=== PATIENT | female | born 1940 | race African-American/Black ===

== ENCOUNTER 2017-06-26 15:02 | Emergency (ER) | payer BC, OTHER ==
[~2017-06-26] VITALS: Ht 167.6 cm; Wt 57.2 kg
[2017-06-26 15:02] VITALS: BP_SYST 183
--- NOTE | 2017-06-26 15:02 | NUR ---
[facility] Side rails up. Report given to Jaylin HIGUERA.
--- NOTE | 2017-06-26 15:37 | NUR ---
ER at bedside examining patient.
[2017-06-26] MEDS ORDERED: NS 500 ML IV SCH (15:39)
[2017-06-26] MEDS ORDERED: IPRATROPIUM/ALBUTEROL SULFATE 3 ML AMPUL.NEB INH ONE ×2 (15:45→18:00)
[2017-06-26 16:37] LABS: BASOPHILS # (AUTO) 0.1 K/uL (0.0-0.2); BASOPHILS % (AUTO) 2.3 % (0.0-2.0); EOSINOPHILS % (AUTO) 0.1 % (0.0-4.0); HEMATOCRIT 39.3 % (36-48); HEMOGLOBIN 12.9 g/dL (12.0-16.0); LYMPHOCYTES # (AUTO) 0.5 K/uL (1.0-5.5); LYMPHOCYTES % (AUTO) 13.5 % (20.5-51.5); MEAN CORPUSCULAR HEMOGLOBIN 30 pg (27-31); MEAN CORPUSCULAR HGB CONC 33 % (32-36); MEAN CORPUSCULAR VOLUME 90 fL (79.0-98.0); MONOCYTES # (AUTO) 0.2 K/uL (0.0-1.0); MONOCYTES % (AUTO) 5.3 % (1.7-9.3); NEUTROPHILS # (AUTO) 2.9 K/uL (1.8-7.7); NEUTROPHILS % (AUTO) 78.8 % (40.0-70.0); PLATELET COUNT (AUTO) 486 K/uL (130-430); RED BLOOD CELL COUNT(AUTO) 4.37 MIL/uL (4.2-6.2); RED CELL DISTRIBUTION WIDTH 11.9 % (9.0-15.0); WHITE BLOOD COUNT (AUTO) 3.7 K/uL (4.8-10.8)
[2017-06-26 16:49] LABS: ANION GAP 12 (5-15); CALCIUM 10.4 mg/dL (8.4-11.0); CHLORIDE 104 mmol/L (98-107); CREATININE 0.68 mg/dL (0.55-1.30); GLUCOSE 156 mg/dL (70-99); POTASSIUM 3.2 mmol/L (3.5-5.1); SODIUM SERUM 140 mmol/L (136-145); UREA NITROGEN, BLOOD 6 mg/dL (8-21)
--- NOTE | 2017-06-26 16:50 | NUR ---
Pt complains of cough, dizzines, n/v with phlegm for the past 3 days. Pt denies fever or diarrhea. Pt was brought in by BLS. No other injuries/complaints per pt or noted. Addendum: 06/26/17 at 1733 by CAITY Pt was assessed at 1600
[2017-06-26 16:54] LABS: ALANINE AMINOTRANSFERASE 27 U/L (12-78); ALBUMIN 4.3 g/dL (3.4-4.8); ASPARTATE AMINOTRANSFERASE 23 U/L (10-37); TOTAL BILIRUBIN 0.7 mg/dL (0.0-1.0)
[2017-06-26 17:07] LABS: PROTHROMBIN TIME 10.4 SECS (9.5-12.5)
[2017-06-26] MEDS ORDERED: NACL 0.9% 500 ML IV ONE (17:15)
--- NOTE | 2017-06-26 17:20 | NUR ---
Pt was given hydration, tolerated it well.
[2017-06-26 17:27] LABS: BILIRUBIN,URINE NEGATIVE (NEGATIVE); BLOOD, URINE NEGATIVE (NEGATIVE); CLARITY/URINE CLEAR (CLEAR); COLOR,URINE YELLOW (YELLOW); GLUCOSE,URINE NEGATIVE (NEGATIVE); KETONES,URINE 2+ (NEGATIVE); LEUKOCYTE ESTERASE ,URINE NEGATIVE (NEGATIVE); NITRITE, URINE NEGATIVE (NEGATIVE); PH,URINE 8.5 (5.0-8.0); PROTEIN URINE NEGATIVE (NEGATIVE); UROBILINOGEN,URINE 0.2 (0.2-1.0)
[2017-06-26] MEDS ORDERED: MECLIZINE HCL 25 MG TABLET (ANITVERT) PO ONE (18:00)
[2017-06-26] MEDS ORDERED: methylPREDNISolone SOD SUCC/PF 62.5 MG/ML VIAL IVP ONE (18:15)
--- NOTE | 2017-06-26 18:17 | NUR ---
Medication was given to pt, tolerated it well.
--- NOTE | 2017-06-26 18:30 | NUR ---
Pt was given medication, tolerated it well.
--- NOTE | 2017-06-26 19:30 | NUR ---
Patient resting quietly in no acute idstress, IVF infusing without difficulty-no redness or swelling noted at site. Will dc when IV fluid is complete.
[2017-06-26 20:00] VITALS: BP_SYST 149
--- NOTE | 2017-06-26 20:00 | NUR ---
Patient given written and verbal discharge instructions and verbalizes understanding. ER MD discussed with patient the results and treatment provided. Patient in stable condition. ID arm band removed. IV catheter removed intact and dressing applied, no active bleeding. Rx of Meclizine, Prednisone given. Patient educated on pain management and to follow up with PMD. Pain Scale 0. Opportunity for questions provided and answered. Patient left ER ambulating with slow, steady gait in no acute distress. No adverse reaction noted to medication. Patient taken to exit via wheelchair by this RN and assisted into car. Patient's family to drive patient home.
== END 2017-06-26 20:00 | disposition home or self-care (01) ==
LOC: SED 15:02
DX: J20.9 Acute bronchitis, unspecified (principal); R42 Dizziness and giddiness; K21.9 Gastro-esophageal reflux disease without esophagitis; Z91.041 Radiographic dye allergy status; J45.909 Unspecified asthma, uncomplicated
CPT/HCPCS: 36415; 71045; 80053; 81003; 83605; 84484; 85025; 85610; 85730; 86710; 87040; 87086; 93005; 94640; 96361; 96374; 99285; J2930; J7030; J7040; J8597

== ENCOUNTER 2018-12-30 16:15 | Emergency (ER) | payer OTHER ==
[~2018-12-30] VITALS: Ht 165.1 cm; Wt 59.9 kg
[2018-12-30 16:51] VITALS: BP_SYST 129
== END 2018-12-30 18:03 | disposition left against medical advice (07) ==
LOC: SED 16:15
DX: M79.674 Pain in right toe(s) (principal); Z53.21 Procedure and treatment not carried out due to patient leaving prior to being seen by health care provider

== ENCOUNTER 2019-01-16 06:33 | Emergency (ER) | payer OTHER ==
[~2019-01-16] VITALS: Ht 165.1 cm; Wt 56.7 kg
[2019-01-16 07:00] VITALS: BP_SYST 133
[2019-01-16 08:24] LABS: BASOPHILS % (AUTO) 0.9 % (0.0-2.0); EOSINOPHILS # (AUTO) 0.1 K/uL (0.0-0.4); EOSINOPHILS % (AUTO) 2.7 % (0.0-4.0); HEMATOCRIT 35.5 % (36-48); HEMOGLOBIN 11.9 g/dL (12.0-16.0); LYMPHOCYTES # (AUTO) 0.9 K/uL (1.0-5.5); LYMPHOCYTES % (AUTO) 24.7 % (20.5-51.5); MEAN CORPUSCULAR HEMOGLOBIN 31 pg (27-31); MEAN CORPUSCULAR HGB CONC 34 % (32-36); MEAN CORPUSCULAR VOLUME 92 fL (79.0-98.0); MONOCYTES # (AUTO) 0.3 K/uL (0.0-1.0); NEUTROPHILS # (AUTO) 2.4 K/uL (1.8-7.7); NEUTROPHILS % (AUTO) 64.7 % (40.0-70.0); PLATELET COUNT (AUTO) 366 K/uL (130-430); RED BLOOD CELL COUNT(AUTO) 3.84 MIL/uL (4.2-6.2); RED CELL DISTRIBUTION WIDTH 13.3 % (9.0-15.0); WHITE BLOOD COUNT (AUTO) 3.7 K/uL (4.8-10.8)
[2019-01-16 08:40] LABS: PROTHROMBIN TIME 9.9 SECS (9.5-12.5)
[2019-01-16 08:49] LABS: ANION GAP 9 (5-15); CALCIUM 9.5 mg/dL (8.4-11.0); CHLORIDE 103 mmol/L (98-107); CREATININE 0.62 mg/dL (0.55-1.30); GLUCOSE 92 mg/dL (70-99); POTASSIUM 3.6 mmol/L (3.5-5.1); SODIUM SERUM 139 mmol/L (136-145); UREA NITROGEN, BLOOD 13 mg/dL (8-21)
[2019-01-16 08:52] LABS: ALANINE AMINOTRANSFERASE 12 U/L (12-78); ALBUMIN 3.7 g/dL (3.4-4.8); ASPARTATE AMINOTRANSFERASE 17 U/L (10-37); TOTAL BILIRUBIN 0.4 mg/dL (0.0-1.0)
[2019-01-16 08:53] LABS: C-REACTIVE PROTEIN QUANT < 0.2 mg/dL (0-0.5)
[2019-01-16 09:07] LABS: ERYTHROCYTE SEDIMENTATION RATE 8 MM/HR (0-20)
[2019-01-16 09:20] VITALS: BP_SYST 133
== END 2019-01-16 09:20 | disposition home or self-care (01) ==
LOC: SED 06:33
DX: S90.211A Contusion of right great toe with damage to nail, initial encounter (principal); G62.9 Polyneuropathy, unspecified; K21.9 Gastro-esophageal reflux disease without esophagitis; J45.909 Unspecified asthma, uncomplicated; Z91.041 Radiographic dye allergy status; X58.XXXA Exposure to other specified factors, initial encounter; Y93.89 Activity, other specified; Y92.89 Other specified places as the place of occurrence of the external cause; Y99.8 Other external cause status
CPT/HCPCS: 36415; 80053; 85025; 85610-TC; 85651-TC; 85730-TC; 86140; 99284

== ENCOUNTER 2022-05-13 08:56 | Inpatient (IN) | payer OTHER ==
[~2022-05-13] VITALS: Ht 165.1 cm; Wt 54.0 kg
[2022-05-13 09:10] VITALS: BP_SYST 147
--- NOTE | 2022-05-13 09:45 | NUR ---
REPORT TO ELVA CLEARY. PT CHANGING INTO GOWN BEDSIDE. ONE SIDE RAIL UP. AAOX4. VSS. AMBULATORY INDEPENDENTLY. NAD NOTED. AWAITING MD ASSESS AND ORDERS.
--- NOTE | 2022-05-13 10:18 | NUR ---
Pt aaox4 CC:LUQ pain 12/23 Pt states past 24 hours pain is dull intermittant pain, swelling noted, tender to touch pt guarding. Pt states no pain radiating, pain is local to LUQ pain. Pt denies NVD, ambulates with steady gait, pt lives at home with a partner, neighbor transported pt to hospital, VSS NAD, Past Med. HX asthma and sinus.
[2022-05-13 11:38] LABS: BASOPHILS # (AUTO) 0.1 K/uL (0.0-0.2); EOSINOPHILS # (AUTO) 0.2 K/uL (0.0-0.4); LYMPHOCYTES # (AUTO) 1.6 K/uL (1.0-5.5); NEUTROPHILS # (AUTO) 2.2 K/uL (1.8-7.7)
[2022-05-13 11:45] LABS: ANION GAP 9 (5-15); CALCIUM 9.7 mg/dL (8.4-11.0); CHLORIDE 100 mmol/L (98-107); GLUCOSE 86 mg/dL (70-99); UREA NITROGEN, BLOOD 14 mg/dL (8-21)
[2022-05-13 11:47] LABS: BASOPHILS % (AUTO) 1.2 % (0.0-2.0); EOSINOPHILS % (AUTO) 3.6 % (0.0-4.0); LYMPHOCYTES % (AUTO) 32.8 % (20.5-51.5); MEAN CORPUSCULAR HEMOGLOBIN 31 pg (27-31); MEAN CORPUSCULAR HGB CONC 35 % (32-36); MEAN CORPUSCULAR VOLUME 89 fL (79.0-98.0); MONOCYTES # (AUTO) 0.9 K/uL (0.0-1.0); MONOCYTES % (AUTO) 17.9 % (1.7-9.3); PLATELET COUNT (AUTO) 674 K/uL (130-430); RED CELL DISTRIBUTION WIDTH 13.3 % (9.0-15.0)
[2022-05-13 11:50] LABS: ALANINE AMINOTRANSFERASE 18 U/L (12-78); ALBUMIN 3.8 g/dL (3.4-4.8); ASPARTATE AMINOTRANSFERASE 21 U/L (10-37); LIPASE 79 U/L (73-393); RED BLOOD CELL COUNT(AUTO) 1.94 MIL/uL (4.2-6.2); TOTAL BILIRUBIN 0.4 mg/dL (0.0-1.0)
[2022-05-13 11:52] LABS: HEMATOCRIT 17.3 % (36-48)
[2022-05-13 12:33] LABS: NEUTROPHILS % (AUTO) 44.5 % (40.0-70.0)
[2022-05-13 13:06] LABS: PROTHROMBIN TIME 10.4 SECS (9.5-12.5)
--- NOTE | 2022-05-13 13:50 | NUR ---
BENTON Dillard at bedside examining patient.
[2022-05-13 14:18] LABS: BILIRUBIN,URINE NEGATIVE (NEGATIVE); CLARITY/URINE CLEAR (CLEAR); COLOR,URINE YELLOW (YELLOW); GLUCOSE,URINE NEGATIVE (NEGATIVE); KETONES,URINE 1+ (NEGATIVE); LEUKOCYTE ESTERASE ,URINE NEGATIVE (NEGATIVE); NITRITE, URINE NEGATIVE (NEGATIVE); PROTEIN URINE NEGATIVE (NEGATIVE); UROBILINOGEN,URINE 0.2 (0.2-1.0)
[2022-05-13 14:41] LABS: BLOOD, URINE TRACE (NEGATIVE)
[2022-05-13 15:01] LABS: BACTERIA,URINE RARE /HPF (None Seen); WBC,URINE 0-3 /HPF (0-3)
--- NOTE | 2022-05-13 17:00 | NUR ---
Consent signed per agreeing to administration of blood. Blood has been type and crossmatched. Blood sent from blood bank. Information on unit of blood checked against patient wristband at bedside by two nurses. All information matches. Patient or responsible green party informed of potential complications associated with blood transfusion. Informed of possible transfusion reaction symptoms. Aware of need to notify nurse at once of itching, shortness of breath, flushing, feeling of impending doom, or other symptoms not previously present. Vital signs taken within 5 minutes prior to initiation of transfusion. RN will remain with patient for first 15 minutes of transfusion at which time vital signs will be re-assessed.
--- NOTE | 2022-05-13 18:00 | NUR ---
Pt tolerating blood transfusion without any issues.
--- NOTE | 2022-05-13 18:52 | NUR ---
2nd unit RBC completed. No adverse reactions. Pt requesting to go home. ER made aware.
--- NOTE | 2022-05-13 19:30 | NUR ---
Admit bed requested Patient will be admitted to care of . Admitted to [facility]SUR[facility] unit. Diagnosis SEVERE ANEMIA Inpatient YES Observation NO Orientation concerns or request close to nursing station NO Covid Status NEG On vent or bipap NO Isolation requirements NO Needs a sitter NO From Home Yes Requires Dialysis NO Med Rec Completed YES
--- NOTE | 2022-05-13 22:00 | NUR ---
PT IN BED, ASLEEP COMFORTABLY. NAD, DENIES PAIN. VSS. FAMILY AT BEDSIDE. SAFE & HAZARD FREE ENVIRONMENT PROVIDED.
--- NOTE | 2022-05-14 03:00 | NUR ---
Patient will be admitted to care of DR. BLEDSOE. Admitted to MEDSURG unit. Will go to room 135B. Belongings list completed. Complete and up to date summary report printed. SBAR report to be given TO KALEN DUNCAN VIA PHONE with opportunity for questions.
[2022-05-14 03:45] VITALS: BP_SYST 149
--- NOTE | 2022-05-14 04:22 | NUR ---
Patient awake alert Admission to room 135 B BRP ambulates 02 SAT 95 % ROOM AIR skin intact procedures explained call crowell given to patient iv PATENT LEFT fa 20 g rESPIRATIONS rEGULAR ALSO UNLABORED ASSIST NEEDED continue to monitor / .
--- NOTE | 2022-05-14 04:33 | NUR ---
Consult called at this time for Dr. Jason mondragon
--- NOTE | 2022-05-14 08:00 | NUR ---
Initial notes alert, ambulate to the bathroom, denies any pain or discomfort. family at bedside. No distress. update plan of care, uses and s/e of meds
[2022-05-14 08:35] VITALS: BP_SYST 119
--- NOTE | 2022-05-14 11:00 | NUR ---
Notes- resting in bed, family at bedside. No complains of pain.
[2022-05-14 12:00] VITALS: BP_SYST 140
--- NOTE | 2022-05-14 15:40 | NUR ---
Pain/ rounds Pt complain of abdominal pain, Dr. limon here and made aware. MD to see patient.
[2022-05-14] MEDS ORDERED: traMADol HCL HCL 50 MG TABLET (ULTRAM) PO PRN (16:15)
[2022-05-14] MEDS ORDERED: ACETAMINOPHEN 325 MG TABLET PO PRN (16:15)
[2022-05-14 16:37] VITALS: BP_SYST 135
[2022-05-14] MEDS: SIMETHICONE 80 MG TAB.CHEW PO PRN (16:50)
[2022-05-14] MEDS ORDERED: BISACODYL 5 MG TABLET.DR (DULCOLAX) PO ONE (17:00)
[2022-05-14] MEDS ORDERED: GOLYTELY / COLYTE SOLUTION 4 LITERS PO ONE (18:00)
--- NOTE | 2022-05-14 18:08 | NUR ---
Notes Pain better, pt drinking her golytely. family at bedside.
[2022-05-14 20:43] VITALS: BP_SYST 114
[2022-05-15 05:10] VITALS: BP_SYST 129
[2022-05-15 06:47] LABS: BASOPHILS % (AUTO) 0.8 % (0.0-2.0); EOSINOPHILS # (AUTO) 0.2 K/uL (0.0-0.4); EOSINOPHILS % (AUTO) 3.6 % (0.0-4.0); HEMATOCRIT 44.3 % (36-48); HEMOGLOBIN 15.2 g/dL (12.0-16.0); LYMPHOCYTES % (AUTO) 23.1 % (20.5-51.5); MEAN CORPUSCULAR HEMOGLOBIN 30 pg (27-31); MEAN CORPUSCULAR HGB CONC 34 % (32-36); MEAN CORPUSCULAR VOLUME 88 fL (79.0-98.0); MONOCYTES # (AUTO) 0.5 K/uL (0.0-1.0); MONOCYTES % (AUTO) 10.3 % (1.7-9.3); NEUTROPHILS # (AUTO) 2.8 K/uL (1.8-7.7); NEUTROPHILS % (AUTO) 62.2 % (40.0-70.0); PLATELET COUNT (AUTO) 424 K/uL (130-430); RED BLOOD CELL COUNT(AUTO) 5.05 MIL/uL (4.2-6.2); RED CELL DISTRIBUTION WIDTH 13.3 % (9.0-15.0); WHITE BLOOD COUNT (AUTO) 4.5 K/uL (4.8-10.8)
[2022-05-15 07:19] LABS: ALANINE AMINOTRANSFERASE 13 U/L (12-78); ALBUMIN 3.4 g/dL (3.4-4.8); ANION GAP 10 (5-15); ASPARTATE AMINOTRANSFERASE 18 U/L (10-37); CALCIUM 9.3 mg/dL (8.4-11.0); CHLORIDE 103 mmol/L (98-107); CREATININE 0.65 mg/dL (0.55-1.30); GLUCOSE 88 mg/dL (70-99); TOTAL BILIRUBIN 0.7 mg/dL (0.0-1.0); UREA NITROGEN, BLOOD 9 mg/dL (8-21)
--- NOTE | 2022-05-15 07:30 | NUR ---
OPENING NOTES: PATIENT IS RESTING IN BED QUIETLY. DAUGHTER AT THE BEDSIDE. AAOX4 ABLE TO MAKE NEEDS KNOWN. EXPLAINED POC AND PATIENT VERBALIZED UNDERSTANDING. NPO AT THIS TIME. EGD/COLONOSCOPY AT 1030AM TODAY. NO ADDITIONAL DISTRESS NOTED. BED IN LOW AND LOCK POSITION. BED ALARM ON. CALL LIGHT AND BEDSIDE TABLE WITHIN REACH. STABLE CONDITION AT THIS TIME.
--- NOTE | 2022-05-15 07:45 | NUR ---
PATIENT RECEIVED TAP WATER ENEMA. LIQUID COMING OUT FROM THE RECTUM IS ALL CLEAR. PATIENT TOLERATED THE PROCEDURE WELL, NO C/O PAIN OR DISCOMFORT.
[2022-05-15] MEDS ORDERED: SIMETHICONE 40 MG/0.6 ML ML ONE (07:48)
[2022-05-15 08:00] VITALS: BP_SYST 155
--- NOTE | 2022-05-15 11:45 | NUR ---
TO GI LAB: LEFT THE UNIT IN A STABLE CONDITION FOR EGD/COLONOSCOPY.
--- NOTE | 2022-05-15 11:51 | NUR ---
Dietitian Recommendations *Continue NPO per rec *If/when medically appropriate resume regular diet *Recommend VIT C 500 mg BID to aid iron absorption GS, RD Please refer to RD Assessment for further details Addendum: 05/15/22 at [address] Amended: Links added.
--- NOTE | 2022-05-15 12:16 | NUR ---
CONSULT HEMATOLOGY ANEMIA DR SILVINA GONZALES [phone] S/W SHARLENE EXCHANGE
[2022-05-15] MEDS: MIDAZOLAM HCL 5 MG/5 ML VIAL ONE ×2 (12:52→12:55)
[2022-05-15] MEDS: MEPERIDINE 100 MG INJ. 100 MG/ML VIAL ONE ×2 (12:52→12:55)
[2022-05-15] MEDS ORDERED: PANTOPRAZOLE SODIUM 40 MG TAB PO ONE (13:45)
--- NOTE | 2022-05-15 14:00 | NUR ---
REPORT FROM GI LAB: EGD/COLONOSCOPY RESULT -DIVERTICULOSIS, HEMORRHOIDS, AND POLYPS. AWAITING FOR RETURN.
[2022-05-15] MEDS ORDERED: POTASSIUM CHLORIDE 20 MEQ TAB.PRT.SR PO ONE ×3 (14:30→16:00)
--- NOTE | 2022-05-15 14:30 | NUR ---
RETURNED FROM GI LAB: PATIENT IS RESTING IN BED, DROWSY BUT EASILY AROUSABLE. DENIES DISTRESS OR PAIN. STABLE CONDITION AT THIS TIME.
[2022-05-15 15:30] VITALS: BP_SYST 145
[2022-05-15] MEDS: SIMETHICONE 80 MG TAB.CHEW PO PRN (15:36)
--- NOTE | 2022-05-15 15:45 | NUR ---
GI LAB 1 HR POST V/S: 1430: BP 145/66, HR 68, T 96.1, RESP 16, 02 SAT ROOM AIR 97%. 1445: BP 151/75, HR 73, T 96.3, RESP 16, 02 SAT ROOM AIR 97%. 1500: BP 132/75, HR 76, T 96.3, RESP 17, 02 SAT ROOM AIR 98%. 1515: BP 135/76, HR 70, T 96.6, RESP 15, 02 SAT ROOM AIR 96%. 1530: BP 145/77, HR 67, T 96.7, RESP 16, 02 SAT ROOM AIR 97%.
--- NOTE | 2022-05-15 19:00 | NUR ---
CLOSING NOTES: PATIENT IS RESTING IN BED QUIETLY WITH DAUGHTER AND AT THE BEDSIDE. ALL NEEDS MET. STABLE CONDITION AT THIS TIME.
[2022-05-15 20:00] VITALS: BP_SYST 138
[2022-05-16] VITALS: BP_SYST 152
--- NOTE | 2022-05-16 07:30 | NUR ---
OPENING NOTES: PATIENT IS RESTING IN BED QUIETLY. DAUGHTER AT THE BEDSIDE. AAOX4 ABLE TO MAKE NEEDS KNOWN. EXPLAINED POC AND PATIENT VERBALIZED UNDERSTANDING. NO ADDITIONAL DISTRESS NOTED. BED IN LOW AND LOCK POSITION. CALL LIGHT AND BEDSIDE TABLE WITHIN REACH. STABLE CONDITION AT THIS TIME.
[2022-05-16 07:31] LABS: BILIRUBIN,URINE 2+ (NEGATIVE); CLARITY/URINE SL CLOUDY (CLEAR); COLOR,URINE YELLOW (YELLOW); GLUCOSE,URINE NEGATIVE (NEGATIVE); KETONES,URINE 2+ (NEGATIVE); LEUKOCYTE ESTERASE ,URINE NEGATIVE (NEGATIVE); NITRITE, URINE NEGATIVE (NEGATIVE); PROTEIN URINE TRACE (NEGATIVE); UROBILINOGEN,URINE 0.2 (0.2-1.0)
[2022-05-16 07:39] LABS: BLOOD, URINE TRACE (NEGATIVE)
[2022-05-16 08:00] VITALS: BP_SYST 127
[2022-05-16] MEDS ORDERED: PANTOPRAZOLE SODIUM 40 MG TAB PO SCH (09:00)
[2022-05-16 10:08] LABS: ALANINE AMINOTRANSFERASE 12 U/L (12-78); ALBUMIN 3.6 g/dL (3.4-4.8); ANION GAP 8 (5-15); ASPARTATE AMINOTRANSFERASE 18 U/L (10-37); CALCIUM 9.3 mg/dL (8.4-11.0); CHLORIDE 100 mmol/L (98-107); CREATININE 0.78 mg/dL (0.55-1.30); GLUCOSE 168 mg/dL (70-99); TOTAL BILIRUBIN 0.6 mg/dL (0.0-1.0); TOTAL IRON BIND. CAPACITY 203 ug/dL (250-450); UREA NITROGEN, BLOOD 13 mg/dL (8-21)
[2022-05-16 10:10] LABS: WBC,URINE 0-3 /HPF (0-3)
[2022-05-16 10:11] LABS: BACTERIA,URINE FEW /HPF (None Seen)
[2022-05-16 10:14] LABS: BASOPHILS % (AUTO) 0.4 % (0.0-2.0); EOSINOPHILS # (AUTO) 0.1 K/uL (0.0-0.4); EOSINOPHILS % (AUTO) 0.9 % (0.0-4.0); HEMATOCRIT 42.7 % (36-48); HEMOGLOBIN 14.6 g/dL (12.0-16.0); LYMPHOCYTES # (AUTO) 1.1 K/uL (1.0-5.5); LYMPHOCYTES % (AUTO) 13.2 % (20.5-51.5); MEAN CORPUSCULAR HEMOGLOBIN 30 pg (27-31); MEAN CORPUSCULAR HGB CONC 34 % (32-36); MEAN CORPUSCULAR VOLUME 89 fL (79.0-98.0); MONOCYTES # (AUTO) 0.5 K/uL (0.0-1.0); MONOCYTES % (AUTO) 5.4 % (1.7-9.3); NEUTROPHILS # (AUTO) 6.7 K/uL (1.8-7.7); NEUTROPHILS % (AUTO) 80.1 % (40.0-70.0); PLATELET COUNT (AUTO) 414 K/uL (130-430); RED CELL DISTRIBUTION WIDTH 13.5 % (9.0-15.0); RETICULOCYTE COUNT 0.6 % (0.5-1.5); WHITE BLOOD COUNT (AUTO) 8.4 K/uL (4.8-10.8)
[2022-05-16 11:47] VITALS: BP_SYST 134
[2022-05-16] MEDS ORDERED: PANT20TA2 PO (14:58)
[2022-05-16] MEDS ORDERED: SUCR1TAB31 PO (14:59)
[2022-05-16 15:26] VITALS: BP_SYST 134
[2022-05-16 15:37] VITALS: BP_SYST 127
--- NOTE | 2022-05-16 15:45 | NUR ---
DC HOME: EXPLAINED AND GAVE DC INSTRUCTIONS TO PATIENT AND DAUGHTER WHO IS AT THE BEDSIDE. BOTH VERBALIZED UNDERSTANDING. IV REMOVED FROM THE LFA. IV CATH INTACT WHEN REMOVED. COVER SITE WITH GAUZE AND SECURE WITH BAN-AID. NO BLEEDING NOTED. WHEELED PATIENT OUT OF THE FACILITY IN A STABLE CONDITION ACCOMPANIED BY STUDENT RN AND DAUGHTER. ALL PERSONAL BELONGING GIVEN TO PATIENT AND DENIES MISSING ITEMS.
[2022-05-17 07:53] LABS: FERRITIN 307 ng/mL (15-150)
[2022-05-17 08:06] LABS: FOLATE (FOLIC ACID) >20.0 ng/mL (>3.0)
== END 2022-05-16 15:45 | disposition home or self-care (01) | DRG 394 ==
LOC: SED 08:56 → SMU 14:22
PROVIDERS: ADMIT Internal Medicine; ATTEND Internal Medicine
PROC: 30233N1 Transfusion of Nonautologous Red Blood Cells into Peripheral Vein, Percutaneous Approach (ICD-10-PCS; principal; 2022-05-13)
PROC: 0DBL8ZX Excision of Transverse Colon, Via Natural or Artificial Opening Endoscopic, Diagnostic (ICD-10-PCS; 2022-05-15)
PROC: 0DB98ZX Excision of Duodenum, Via Natural or Artificial Opening Endoscopic, Diagnostic (ICD-10-PCS; 2022-05-15 11:30)
PROC: 0DB78ZX Excision of Stomach, Pylorus, Via Natural or Artificial Opening Endoscopic, Diagnostic (ICD-10-PCS; 2022-05-15 11:30)
DX: K64.8 Other hemorrhoids (principal); D62 Acute posthemorrhagic anemia; E44.1 Mild protein-calorie malnutrition; K29.70 Gastritis, unspecified, without bleeding; K57.30 Diverticulosis of large intestine without perforation or abscess without bleeding; K63.5 Polyp of colon; D64.9 Anemia, unspecified; Z20.822 Contact with and (suspected) exposure to COVID-19; K76.89 Other specified diseases of liver; J45.909 Unspecified asthma, uncomplicated; K59.00 Constipation, unspecified; Z88.0 Allergy status to penicillin; Z91.041 Radiographic dye allergy status; Z79.899 Other long term (current) drug therapy; Z80.0 Family history of malignant neoplasm of digestive organs; Z80.3 Family history of malignant neoplasm of breast; Z90.710 Acquired absence of both cervix and uterus
CPT/HCPCS: 36415; 43239; 43255; 45380; 71045; 76376; 80053; 81000; 82272; 82607; 82728; 82746; 83540; 83550; 83690; 84484; 85025; 85044; 85610-TC; 86886; 86900; 86901; 86920; 87081; 88305; 88312; 88313; 93005; 99285; J2175; J2250; J7030; P9021